=== PATIENT | female | born 1985 | race African-American/Black ===

== ENCOUNTER 2022-10-16 10:19 | Emergency (ER) | payer OTHER ==
--- NOTE | 2022-10-16 10:55 | RAD REPORT ---
EXAM DESCRIPTION: CT - Head Brain Wo Cont - 10/16/2022 10:50 am CLINICAL HISTORY: Seizure;Headache COMPARISON: No comparisons TECHNIQUE: All CT scans are performed using dose optimization technique as appropriate and may inclu de automated exposure control or mA/KV adjustment according to patient size. FINDINGS: No intracranial hemorrhage, hydrocephalus or extra-axial fluid collection.No areas of brai n edema or evidence of midline shift. The paranasal sinuses and mastoids are clear. The calvarium is intact. IMPRESSION: No acute intracranial abnormality.
[2022-10-16 11:13] LABS: Absolute Lymphocytes (CBC) 1.8 K/uL (0.7-4.9); Hematocrit 31.9 % (36.0-45.0); Lymphocytes % 32.9 % (15.3-44.8)
[2022-10-16] MEDS ORDERED: LORazepam 2 MG/ML VIAL ONE (11:17)
[2022-10-16] MEDS ORDERED: ACETAMINOPHEN 325 MG TABLET ONE (11:17)
[2022-10-16 11:26] LABS: Potassium 3.8 mEq/L (3.5-5.1)
[2022-10-16 11:53] LABS: Urine Bilirubin NEGATIVE (Negative); Urine Blood Negative (Negative); Urine Clarity Clear (Clear); Urine Color Light-Yellow (Yellow); Urine Glucose NEGATIVE (Negative); Urine Protein NEGATIVE (Negative); Urine Urobilinogen Normal (Normal)
--- NOTE | 2022-10-16 13:01 | ER ---
Nurse's Notes [facility] Name: Greta Spain Age: 37 yrs Sex: Female : 1985 Arrival Date: 10/16/2022 Time: 10:19 Bed 19 Private MD: Diagnosis: Other seizures Presentation: 10/16 10:27 Chief complaint: EMS states: witnessed seizure while at work. Patient states did not db lose consciousness. AOx4. Has been taking medications. Coronavirus screen: Vaccine status: Patient reports being unvaccinated. Client denies travel out of the [place] in the last 14 days. At this time, the client does not indicate any symptoms associated with coronavirus-19. Ebola Screen: Patient negative for fever greater than or equal to 101.5 degrees Fahrenheit, and additional compatible Ebola Virus Disease symptoms Patient denies exposure to infectious person. Patient denies travel to an Ebola-affected area in the 21 days before illness onset. No symptoms or risks identified at this time. Initial Sepsis Screen: Does the patient meet any 2 criteria? No. Patient's initial sepsis screen is negative. Does the patient have a suspected source of infection? No. Patient's initial sepsis screen is negative. Risk Assessment: Do you want to hurt yourself or someone else? Patient reports no desire to harm self or others. Onset of symptoms was October 16, 2022. 10:27 Method Of Arrival: EMS: [facility] db 10:27 Acuity: AALIYAH 2 db Triage Assessment: 10:32 General: Appears in no apparent distress. comfortable, Behavior is calm, cooperative. db Pain: Denies pain. Neuro: Level of Consciousness is awake, alert, obeys commands, Oriented to person, place, time, situation. 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 - Family history:: not pertinent. - Social history:: Smoking status: Patient denies any tobacco usage or history of. - Hospitalizations: : No recent hospitalization is reported. Screenin:08 [facility] ED Fall Risk Assessment (Adult) History of falling in the last 3 months, db including since admission Yes- single mechanical fall (1 pt) Confusion or Disorientation No (0 pts) Intoxicated or Sedated No (0 pts) Impaired Gait No (0 pts) Mobility Assist Device Used No (0 pt) Altered Elimination No (0 pt) Score/Fall Risk Level 0 - 2 = Low Risk Oriented to surroundings, Maintained a safe environment. Abuse screen: Denies threats or abuse. Denies injuries from another. Nutritional screening: No deficits noted. Tuberculosis screening: No symptoms or risk factors identified. Assessment: 10:32 Reassessment: patient having shaking episode. Denies LOC answering questions. Dr. Merino db at bedside. 10:40 Reassessment: Patient appears in no apparent distress at this time. Patient and/or db family updated on plan of care and expected duration. Pain level reassessed. Patient is alert, oriented x 3, equal unlabored respirations, skin warm/dry/pink. General: Appears in no apparent distress. comfortable, Behavior is calm, cooperative. Neuro: Level of Consciousness is awake, alert, obeys commands, Oriented to person, place, time, situation. Respiratory: Airway is patent Respiratory effort is even, unlabored, Respiratory pattern is regular, symmetrical. 10:49 Reassessment: patient in CT. db 13:29 Reassessment: Patient appears in no apparent distress at this time. medication pending db from pharmacy then patient DC. 13:30 Reassessment: Patient appears in no apparent distress at this time. Patient and/or db family updated on plan of care and expected duration. Pain level reassessed. Patient is alert, oriented x 3, equal unlabored respirations, skin warm/dry/pink. Patient denies pain at this time. Patient states feeling better. Vital Signs: 10:27 BP 128 / 98; Pulse 87; Resp 16; Temp 99.4; Pulse Ox 100% on R/A; Weight 99.79 kg; db Height 5 ft. 10 in. ; 11:15 BP 131 / 97; Pulse 84; Resp 14; Pulse Ox 99% ; db 12:00 BP 132 / 83; Pulse 76; Resp 16; Pulse Ox 98% on R/A; db 13:00 BP 114 / 85; Pulse 82; Resp 16; Pulse Ox 100% on R/A; db 10:27 Body Mass Index 31.57 (99.79 kg, 177.8 cm) db Ira Coma Score: 10:32 Eye Response: spontaneous(4). Motor Response: obeys commands(6). Verbal Response: db oriented(5). Total: 15. ED Course: 10:27 Patient arrived in ED. db 10:30 Abhi Merino MD is Attending Physician. rn 10:32 Triage completed. db 10:32 Arm band placed on right wrist. Patient placed in an exam room. db 10:35 Seizure precautions initiated. db 10:40 Anais Pate, RN is Primary Nurse. db 10:52 CT Head Brain wo Cont In Process Unspecified. EDMS 11:07 EKG done, by ED staff, reviewed by Abhi Merino MD. em1 11:08 Maintain EMS IV. Dressing intact. Good blood return noted. Site clean \T\ dry. Gauge \T\ db site: left 20G to AC. dressing changed. 11:15 Patient has correct armband on for positive identification. Bed in low position. Call db light in reach. Side rails up X 1. Client placed on continuous cardiac and pulse oximetry monitoring. NIBP monitoring applied. 13:31 Awaiting: medication from pharmacy. db 13:31 Patient has correct armband on for positive identification. db 13:31 No provider procedures requiring assistance completed. IV discontinued, intact, db bleeding controlled, No redness/swelling at site. Administered Medications: 11:14 Drug: Acetaminophen PO 650 mg Route: PO; db 13:36 Follow up: Response: No adverse reaction db 11:14 Drug: Ativan IVP 0.5 mg Route: IVP; Site: left antecubital; db 13:37 Follow up: Response: No adverse reaction db 13:35 Drug: Topamax PO 50 mg Route: PO; db 13:36 Follow up: Response: No adverse reaction db Medication: 13:32 VIS not applicable for this client. db Outcome: 13:01 Discharge ordered by . rn 13:31 Discharged to home ambulatory. db 13:31 Condition: stable 13:31 Discharge instructions given to patient, Instructed on discharge instructions, follow up and referral plans. 13:36 Patient left the ED. db Signatures: Dispatcher [employer] EDMS Abhi Merino MD MD rn Martinez, Eric em1 Anais Pate, ANDREA RN db
--- NOTE | 2022-10-16 13:01 | EDPHYS ---
Physician Documentation [facility] Name: Greta Spain Age: 37 yrs Sex: Female : 1985 Arrival Date: 10/16/2022 Time: 10:19 Bed 19 Private MD: ED Physician Abhi Merino HPI: 10/16 10:59 This 37 yrs old Black Female presents to ER via EMS with complaints of Probable Seizure.rn 10:59 The patient presents after having a possible seizure episode. Character of seizure(s): rn Loss of consciousness: the patient did not lose consciousness, Motor activity: focal activity, of the right arm, Incontinence: none. Seizure onset: this morning. Associated injury: The patient did not suffer any apparent associated injury. Current symptoms: headache. The patient has experienced similar episodes in the past. Pt reports having tremors/partial seizures, this morning, has had them before, sees Dr. Lucio, unknown medication but taken off keppra in past. Not a recent change. + recent URI/cold last week and missed a few doses of her seizure medication, including today. . 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 - Family history:: not pertinent. - Social history:: Smoking status: Patient denies any tobacco usage or history of. - Hospitalizations: : No recent hospitalization is reported. ROS: 10:59 Constitutional: Negative for fever, chills, and weight loss, Cardiovascular: Negative rn for chest pain, palpitations, and edema, Respiratory: Negative for shortness of breath, cough, wheezing, and pleuritic chest pain, Abdomen/GI: Negative for abdominal pain, nausea, vomiting, diarrhea, and constipation, Back: Negative for injury and pain, MS/Extremity: Negative for injury and deformity, Skin: Negative for injury, rash, and discoloration, Neuro: Negative for weakness, numbness, tingling, + for headache and seizure Exam: 10:59 Constitutional: This is a well developed, well nourished patient who is awake, alert, rn and in no acute distress. Right arm trembling but using right arm to hold phone to left ear and talk Head/Face: Normocephalic, atraumatic. Eyes: Periorbital areas with no swelling, redness, or edema. Cardiovascular: Regular rate and rhythm. No pulse deficits. Respiratory: No increased work of breathing, no retractions or nasal flaring. Abdomen/GI: soft, non-tender Skin: Warm, dry MS/ Extremity: Pulses equal, no cyanosis. Neurovascular intact. Full, normal range of motion. Equal circumference. Neuro: Awake and alert, GCS 15, oriented to person, place, time, and situation. Cranial nerves II-XII grossly intact. Motor strength 5/5 in all extremities. Sensory grossly intact. 11:15 ECG was reviewed by the Attending Physician. rn Vital Signs: 10:27 BP 128 / 98; Pulse 87; Resp 16; Temp 99.4; Pulse Ox 100% on R/A; Weight 99.79 kg; db Height 5 ft. 10 in. ; 11:15 BP 131 / 97; Pulse 84; Resp 14; Pulse Ox 99% ; db 12:00 BP 132 / 83; Pulse 76; Resp 16; Pulse Ox 98% on R/A; db 13:00 BP 114 / 85; Pulse 82; Resp 16; Pulse Ox 100% on R/A; db 10:27 Body Mass Index 31.57 (99.79 kg, 177.8 cm) db Ubly Coma Score: 10:32 Eye Response: spontaneous(4). Motor Response: obeys commands(6). Verbal Response: db oriented(5). Total: 15. MDM: 10:30 Patient medically screened. rn 12:57 Differential diagnosis: seizure, dehydration, electrolyte problem, UTI. Data reviewed: rn vital signs, nurses notes, lab test result(s), EKG, radiologic studies, CT scan, and as a result, I will discharge patient. Counseling: I had a detailed discussion with the patient and/or guardian regarding: the historical points, exam findings, and any diagnostic results supporting the discharge/admit diagnosis, lab results, radiology results, the need for outpatient follow up, to return to the emergency department if symptoms worsen or persist or if there are any questions or concerns that arise at home. Response to treatment: the patient's symptoms have resolved after treatment, the patient's condition has returned to base line, the patient is now symptom free, and as a result, I will discharge patient. Special discussion: I discussed with the patient/guardian in detail that at this point there is no indication for admission to the hospital. It is understood, however, that if the symptoms persist or worsen the patient needs to return immediately for re-evaluation. Based on the history and exam findings, there is no indication for further emergent testing or inpatient evaluation. I discussed with the patient/guardian the need to see the neurologist for further evaluation of the symptoms. ED course: No acute findings in ct head or blood/urine. Will dc home as breakthrough seizure, likely 2/2 recent cold and missed doses. . 10/16 10:37 Order name: CBC with Diff; Complete Time: 12:53 rn 10/16 10:37 Order name: Basic Metabolic Panel; Complete Time: 12:53 rn 10/16 10:37 Order name: Test, Urine; Complete Time: 12:53 rn 10/16 10:37 Order name: Urinalysis w/ reflexes; Complete Time: 12:53 rn 10/16 10:37 Order name: COVID-19 SARS RT PCR; Complete Time: 12:53 rn 10/16 10:37 Order name: Flu; Complete Time: 12:53 rn 10/16 10:37 Order name: Strep rn 10/16 12:03 Order name: Throat Culture EDPR 10/16 10:37 Order name: CT Head Brain wo Cont; Complete Time: 11:03 rn 10/16 10:37 Order name: EKG; Complete Time: 10:38 rn 10/16 10:37 Order name: IV Start; Complete Time: 11:15 rn 10/16 10:37 Order name: EKG - Nurse/Tech; Complete Time: 11:07 rn EC: Rate is 90 beats/min. Rhythm is regular. QRS [place] is Normal. CA interval is normal. QRS rn interval is normal. QT interval is normal. No Q waves. T waves are Normal. No ST changes noted. Clinical impression: Normal ECG. Interpreted by me. Reviewed by me. Administered Medications: 11:14 Drug: Acetaminophen PO 650 mg Route: PO; db 13:36 Follow up: Response: No adverse reaction db 11:14 Drug: Ativan IVP 0.5 mg Route: IVP; Site: left antecubital; db 13:37 Follow up: Response: No adverse reaction db 13:35 Drug: Topamax PO 50 mg Route: PO; db 13:36 Follow up: Response: No adverse reaction db Disposition Summary: 10/16/22 13:01 Discharge Ordered Location: Home rn Problem: new rn Symptoms: have improved rn Condition: Stable rn Diagnosis - Other seizures rn Followup: rn - With: Private Physician - When: As needed - Reason: Recheck today's complaints, Re-evaluation by your physician Discharge Instructions: - Discharge Summary Sheet rn - Seizure, Adult rn Forms: - Medication Reconciliation Form rn - Thank You Letter rn - Antibiotic internet site designer - Prescription Opioid Use rn Signatures: Dispatcher [employer] Abhi Araya MD MD rn Benton, Danielle, RN RN db
[2022-10-16] MEDS ORDERED: TOPIRAMATE 25 MG TAB PO ONE (13:30)
[2022-10-16 14:18] VITALS: TEMP 99.4
[2022-10-16 14:21] VITALS: BP 114/85; O2SAT 100
--- NOTE | 2022-10-17 07:49 | EKG ---
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
== END 2022-10-16 13:36 | disposition home or self-care (01) ==
LOC: ER 10:19
DX: G40.89 Other seizures (principal); Z20.822 Contact with and (suspected) exposure to COVID-19
CPT/HCPCS: 93005; 87070; 85025; 80048; 36415; 81025; 87081; 81003; 87804 ×2; 70450; 96374; 99284; U0003